=== PATIENT | female | born 1950 | race Caucasian/White ===

== ENCOUNTER 2016-07-17 04:17 | Emergency (ER) | payer OTHER ==
[~2016-07-17] VITALS: Ht 160 cm; Wt 75.8 kg
[~2016-07-17 04:17] MED LIST: ADVAIR 500/501 DISK IH; ALBUTEROL2.5 MG/3 M IH; ATROVENT 00.5 MG/2.5 IH; CELECOXIB200 MG PO; COMBIVENT RESPIM4 GM IH; DELTASONE20 M1 PO; HYDROCODON-ACE1 EAC7 PO; Habitrol,Nicoderm CQ TD; LEVOFLOXACIN750 MG PO; Levaquin PO; PEN-VEE K,VEET500 MG PO; PREDNISONE20 MG PO; PROVENTIL,2.5 MG/0.5 IH; SPIRIVA1 INHALATI IH; SYMBICORT60 INHALAT IH; Singulair PO; THEO-DUR,THEOC300 MG PO; ZITHROMAX250 MG PO; predniSONE PO
[2016-07-17 05:02] LABS: HEMATOCRIT 47.1 % (36.0-46.0); MCHC 33.5 G/DL (30.0-36.0); MCV 89.4 FL (83-99); MEAN PLAT.VOLUME 10.4 uM^3 (9.5-12.4); PLATELET COUNT 316 K/uL (156-360); RBC DIS.WIDTH-CV 12.8 % (11.8-14.6); RBC DIS.WIDTH-SD 41.8 % (39-53); RED BLOOD COUNT 5.27 M/uL (3.80-5.20)
[2016-07-17 05:04] LABS: BASOPHIL COUNT 0.1 K/uL (0-0.1); EOSINOPHIL (%) 0.6 % (0-5); EOSINOPHIL COUNT 0.1 K/uL (0-0.3); IMMATURE GRANULOCYTE (%) 0.3 % (0.0-0.7); IMMATURE GRANULOCYTE COUNT 0.3 K/uL; LYMPHOCYTE COUNT 0.8 K/uL (1.0-2.8); MONOCYTE (%) 16.5 % (3-12); MONOCYTE COUNT 1.8 K/uL (0-0.8); NEUTROPHIL (%) 74.6 % (45-76); NEUTROPHIL COUNT 8.2 K/uL (1.8-6.4)
[2016-07-17 05:07] LABS: INFLUENZA A VIRAL ANTIGEN POSITIVE; INFLUENZA B VIRAL ANTIGEN NEGATIVE
[2016-07-17 05:14] LABS: CHLORIDE 100 mEq/L (99-109); POTASSIUM 3.8 mEq/L (3.7-5.4); SODIUM 137 mEq/L (136-147)
[2016-07-17 05:15] LABS: GLUCOSE 111 mg/dL (70-99)
[2016-07-17 05:17] LABS: ANION GAP 13 MEQ/L (2-14)
[2016-07-17 05:19] LABS: GFR ESTIMATE (CALCULATED) > 59 mL/min/
[2016-07-17 05:20] LABS: UREA NITROGEN (BUN) 6 mg/dL (9-23)
[2016-07-17] MEDS ORDERED: PHENERGAN-CODE120 ML PO (07:08)
[2016-07-17] MEDS ORDERED: TAMIFLU75 MG PO (07:08)
[2016-07-17 07:17] VITALS: BP 135/108
== END 2016-07-17 07:18 | disposition home or self-care (01) ==
LOC: EME 04:17
DX: J10.1 Influenza due to other identified influenza virus with other respiratory manifestations (principal); J44.9 Chronic obstructive pulmonary disease, unspecified; J45.909 Unspecified asthma, uncomplicated; Z79.52 Long term (current) use of systemic steroids; Z87.891 Personal history of nicotine dependence
CPT/HCPCS: 71020; 80048; 85025; 87502; 99281; 99283

== ENCOUNTER 2017-07-25 10:34 | Emergency (ER) | payer OTHER ==
[~2017-07-25] VITALS: Ht 160 cm; Wt 74.4 kg
[~2017-07-25 10:34] MED LIST changes: +PHENERGAN-CODE120 ML PO; +TAMIFLU75 MG PO
[2017-07-25 11:39] LABS: HEMATOCRIT 40.4 % (36.0-46.0); HEMOGLOBIN 13.9 G/DL (11.9-15.5); MCH 30.6 PG (29.0-34.0); MCHC 34.4 G/DL (30.0-36.0); PLATELET COUNT 283 K/uL (156-360); RBC DIS.WIDTH-CV 12.1 % (11.8-14.6); RBC DIS.WIDTH-SD 38.8 % (39-53); RED BLOOD COUNT 4.54 M/uL (3.80-5.20); WHITE BLOOD COUNT 9.9 K/uL (4.1-10.2)
[2017-07-25 11:50] LABS: ALBUMIN 4.3 g/dL (3.2-4.8); CHLORIDE 107 mEq/L (99-109); POTASSIUM 4.5 mEq/L (3.7-5.4); SODIUM 140 mEq/L (136-147)
[2017-07-25 11:52] LABS: GLUCOSE 82 mg/dL (70-99); TOTAL PROTEIN 7.4 g/dL (6.4-8.3)
[2017-07-25 11:54] LABS: TOTAL BILIRUBIN 0.5 mg/dL (0.0-1.0)
[2017-07-25 11:56] LABS: ALKALINE PHOSPHATASE 80 IU/L (3-129); CREATININE 0.9 mg/dL (0.6-1.3); GFR ESTIMATE (CALCULATED) > 59 mL/min/
[2017-07-25 11:57] LABS: UREA NITROGEN (BUN) 7 mg/dL (9-23)
[2017-07-25 11:58] LABS: AST (GOT) 17 IU/L (2-34)
[2017-07-25 11:59] LABS: ALT (GPT) 14 IU/L (3-49)
[2017-07-25 13:22] LABS: TROP-I INTERPRETATION NEGATIVE; TROPONIN-I < 0.01 ng/mL (0.0-0.30)
[2017-07-25] MEDS ORDERED: TESSALON200 MG PO (15:01)
[2017-07-25] MEDS ORDERED: TYLENOL WITH C1 EACH PO (15:03)
[2017-07-25 15:08] LABS: TROP-I INTERPRETATION NEGATIVE; TROPONIN-I 0.01 ng/mL (0.0-0.30)
[2017-07-25 15:19] VITALS: BP 145/88
== END 2017-07-25 15:27 | disposition home or self-care (01) ==
LOC: EME 10:34
PROVIDERS: Nurse Practitioner Family
DX: J06.9 Acute upper respiratory infection, unspecified (principal); J44.9 Chronic obstructive pulmonary disease, unspecified; Z87.891 Personal history of nicotine dependence; Z88.8 Allergy status to other drugs, medicaments and biological substances
CPT/HCPCS: 71046; 71275; 80053; 84484; 85027; 87502; 93005; 94640; J1885